=== PATIENT | female | born 1980 | race American Indian/Alaskan Native ===

== ENCOUNTER 2018-08-10 11:14 | Emergency (ER) | payer MEDICARE ==
--- NOTE | 2018-08-10 11:50 | Emergency Department Report ---
ED General Adult HPI - General Chief complaint: Dizziness Stated complaint: N/V Time Seen by Provider: 08/10/18 11:39 Source: patient Mode of arrival: Ambulatory Limitations: No Limitations - History of Present Illness Initial comments: A 7-year-old female who reportedly took a double dose of her Aptiom ( eslicarbazepine) by accident. Apparently she felt weak at work and vomited. On my encounter the patient is poorly describing the course of events. She is somewhat mumbling and speaking a low voice. She does not appear to be altered but she is acting somewhat lethargic. She was oriented x 3 as per triage. She is speaking in a very low voice and difficult to obtain historical information from at this point. -: unknown - Related Data Home Medications Medication Instructions Recorded Confirmed Last Taken Escitalopram [Lexapro] 10 mg PO DAILY 08/10/18 08/10/18 Unknown Eslicarbazepine Acetate [Aptiom] 1,200 mg PO DAILY 08/10/18 08/10/18 Unknown Gabapentin [Neurontin] 300 mg PO TID 08/10/18 08/10/18 Unknown diazePAM [Diazepam] 5 mg PO Q8H 08/10/18 08/10/18 Unknown lamoTRIgine [LaMICtal] 50 mg PO DAILY 08/10/18 08/10/18 Unknown Allergies Allergy/AdvReac Type Severity Reaction Status Date / Time No Known Allergies Allergy Unverified 08/10/18 11:16 ED Review of Systems ROS: Stated complaint: N/V Other details as noted in HPI Comment: Unobtainable due to pts medical conditions ED Past Medical Hx - Past Medical History Previous Medical History?: Yes Hx Seizures: Yes - Surgical History Past Surgical History?: No - Social History Smoking Status: Never Smoker - Medications Home Medications: Home Medications Medication Instructions Recorded Confirmed Last Taken Type Escitalopram [Lexapro] 10 mg PO DAILY 08/10/18 08/10/18 Unknown History Eslicarbazepine Acetate [Aptiom] 1,200 mg PO DAILY 08/10/18 08/10/18 Unknown History Gabapentin [Neurontin] 300 mg PO TID 08/10/18 08/10/18 Unknown History diazePAM [Diazepam] 5 mg PO Q8H 08/10/18 08/10/18 Unknown History lamoTRIgine [LaMICtal] 50 mg PO DAILY 08/10/18 08/10/18 Unknown History ED Physical Exam - General Limitations: Other (poor cooperation versus altered mental status) General appearance: in no apparent distress, lethargic - Head Head exam: Present: atraumatic, normocephalic - Eye Eye exam: Present: normal appearance, PERRL, EOMI. Absent: scleral icterus - ENT ENT exam: Present: mucous membranes moist - Neck Neck exam: Present: normal inspection. Absent: tenderness, meningismus - Respiratory Respiratory exam: Present: normal lung sounds bilaterally. Absent: respiratory distress - Cardiovascular Cardiovascular Exam: Present: regular rate, normal rhythm. Absent: systolic murmur, diastolic murmur, rubs, gallop - GI/Abdominal GI/Abdominal exam: Present: soft, normal bowel sounds. Absent: distended, tenderness, guarding, rebound, rigid - Extremities Exam Extremities exam: Present: normal inspection, full ROM - Back Exam Back exam: Present: normal inspection - Neurological Exam Neurological exam: Present: oriented X3 (per nursing), CN II-XII intact (as testable). Absent: motor sensory deficit - Psychiatric Psychiatric exam: Present: normal mood, flat affect - Skin Skin exam: Present: warm, dry, intact, normal color. Absent: rash ED Course Vital Signs 08/10/18 08/10/18 08/10/18 11:28 11:30 11:34 Temperature 97.7 F Pulse Rate 78 77 Respiratory 13 13 Rate Blood Pressure 132/86 - Reevaluation(s) Reevaluation #1: Patient remained neurologically and hemodynamically stable. Her laboratory data base was unremarkable except for mild hypokalemia/mag. She is appropriate for outpatient disposition. She is informed to follow up with her neurologist/ primary care physicians. 08/10/18 15:41 ED Medical Decision Making - Lab Data Result diagrams: 08/10/18 11:58 08/10/18 11:58 Laboratory Results - last 24 hr 08/10/18 08/10/18 08/10/18 11:58 11:58 12:03 WBC 7.9 RBC 4.30 Hgb 12.6 Hct 37.8 MCV 88 MCH 29 MCHC 33 RDW 12.0 L Plt Count 225 Lymph % (Auto) 13.9 [place] % (Auto) 4.8 Eos % (Auto) 1.8 Baso % (Auto) 0.6 Lymph # 1.1 L [place] # 0.4 Eos # 0.1 Baso # 0.0 Seg Neutrophils % 78.9 H Seg Neutrophils # 6.3 Sodium 137 Potassium 3.1 L Chloride 99.3 Carbon Dioxide 26 Anion Gap 15 BUN 11 Creatinine 0.6 L Estimated GFR > 60 BUN/Creatinine Ratio 18 Glucose 159 H Calcium 8.6 Magnesium 1.60 L Total Bilirubin < 0.20 Direct Bilirubin < 0.2 Indirect Bilirubin 0.0 AST 11 ALT 8 Alkaline Phosphatase 37 Total Creatine Kinase 89 CK-MB (CK-2) < 1.0 CK-MB (CK-2) Rel Index 1.1 Total Protein 6.7 Albumin 4.4 Albumin/Globulin Ratio 1.9 Urine Color Urine Turbidity Urine pH Ur Specific [place] Urine Protein Urine Glucose (UA) Urine Ketones Urine Blood Urine Nitrite Urine Bilirubin Urine Urobilinogen Ur Leukocyte Esterase Urine WBC (Auto) Urine RBC (Auto) Urine Mucus Urine HCG, Qual Urine Opiates Screen Urine Methadone Screen Acetaminophen Ur Barbiturates Screen Ur Phencyclidine Scrn Ur Amphetamines Screen U Benzodiazepines Scrn Urine Cocaine Screen U Marijuana (THC) Screen Drugs of Abuse Note Plasma/Serum Alcohol 08/10/18 08/10/18 08/10/18 12:03 12:03 14:08 WBC RBC Hgb Hct MCV MCH MCHC RDW Plt Count Lymph % (Auto) [place] % (Auto) Eos % (Auto) Baso % (Auto) Lymph # [place] # Eos # Baso # Seg Neutrophils % Seg Neutrophils # Sodium Potassium Chloride Carbon Dioxide Anion Gap BUN Creatinine Estimated GFR BUN/Creatinine Ratio Glucose Calcium Magnesium Total Bilirubin Direct Bilirubin Indirect Bilirubin AST ALT Alkaline Phosphatase Total Creatine Kinase CK-MB (CK-2) CK-MB (CK-2) Rel Index Total Protein Albumin Albumin/Globulin Ratio Urine Color Yellow Urine Turbidity Clear Urine pH 6.0 Ur Specific [place] 1.016 Urine Protein 30 mg/dl Urine Glucose (UA) 50 Urine Ketones Neg Urine Blood Neg Urine Nitrite Neg Urine Bilirubin Neg Urine Urobilinogen < 2.0 Ur Leukocyte Esterase Neg Urine WBC (Auto) 5.0 Urine RBC (Auto) 2.0 Urine Mucus 1+ Urine HCG, Qual Negative Urine Opiates Screen Urine Methadone Screen Acetaminophen < 5.0 L Ur Barbiturates Screen Ur Phencyclidine Scrn Ur Amphetamines Screen U Benzodiazepines Scrn Urine Cocaine Screen U Marijuana (THC) Screen Drugs of Abuse Note Plasma/Serum Alcohol < 0.01 08/10/18 14:18 WBC RBC Hgb Hct MCV MCH MCHC RDW Plt Count Lymph % (Auto) [place] % (Auto) Eos % (Auto) Baso % (Auto) Lymph # [place] # Eos # Baso # Seg Neutrophils % Seg Neutrophils # Sodium Potassium Chloride Carbon Dioxide Anion Gap BUN Creatinine Estimated GFR BUN/Creatinine Ratio Glucose Calcium Magnesium Total Bilirubin Direct Bilirubin Indirect Bilirubin AST ALT Alkaline Phosphatase Total Creatine Kinase CK-MB (CK-2) CK-MB (CK-2) Rel Index Total Protein Albumin Albumin/Globulin Ratio Urine Color Urine Turbidity Urine pH Ur Specific [place] Urine Protein Urine Glucose (UA) Urine Ketones Urine Blood Urine Nitrite Urine Bilirubin Urine Urobilinogen Ur Leukocyte Esterase Urine WBC (Auto) Urine RBC (Auto) Urine Mucus Urine HCG, Qual Urine Opiates Screen Presumptive negative Urine Methadone Screen Presumptive negative Acetaminophen Ur Barbiturates Screen Presumptive negative Ur Phencyclidine Scrn Presumptive negative Ur Amphetamines Screen Presumptive negative U Benzodiazepines Scrn Presumptive positive Urine Cocaine Screen Presumptive negative U Marijuana (THC) Screen Presumptive negative Drugs of Abuse Note Disclamer Plasma/Serum Alcohol - EKG Data -: EKG Interpreted by [place] EKG shows normal: sinus rhythm, axis, intervals, QRS complexes, ST-T waves Rate: normal - EKG Data Interpretation: other (consider biatrial abnormality, somewhat increased voltage inferior leads) Critical care attestation.: If time is entered above; I have spent that time in minutes in the direct care of this critically ill patient, excluding procedure time. ED Disposition Clinical Impression: Hypokalemia, Hypomagnesemia Adverse effects of medication Qualifiers: Encounter type: initial encounter Qualified Code(s): T50.905A - Adverse effect of unspecified drugs, medicaments and biological substances, initial encounter Disposition: DC-01 TO HOME OR SELFCARE Is pt being admited?: No Does the pt Need Aspirin: No Condition: Stable Instructions: Hypokalemia (ED), Hypomagnesemia (ED) Additional Instructions: Follow-up with your usual neurologist/primary care physician. Your potassium and magnesium were a little low. This would be improved by higher potassium and magnesium and neurologic diet. Follow-up on this with your primary care physician. Rest return any acute change or problem. Referrals: PRIMARY CARE, [Primary Care Provider] - 2-3 Days Time of Disposition: 15:45
[2018-08-10] MEDS ORDERED: NACL 0.9% 1000 ML 1,000 ML IV ONE (11:57)
[2018-08-10 12:24] LABS: Basophils % (Auto) 0.6 % (0.0-1.8); Eosinophils # (Auto) 0.1 K/mm3 (0.0-0.4); Eosinophils % (Auto) 1.8 % (0.0-4.3); Hematocrit 37.8 % (30.3-42.9); Hemoglobin 12.6 gm/dl (10.1-14.3); Lymphocytes # (Auto) 1.1 K/mm3 (1.2-5.4); Lymphocytes % (Auto) 13.9 % (13.4-35.0); Mean Corpuscular HGB Conc 33 % (30-34); Mean Corpuscular Hemoglobin 29 pg (28-32); Mean Corpuscular Volume 88 fl (79-97); Monocytes # (Auto) 0.4 K/mm3 (0.0-0.8); Monocytes % (Auto) 4.8 % (0.0-7.3); Platelet Count 225 K/mm3 (140-440)
[2018-08-10 12:26] LABS: BUN/Creatinine Ratio 18; Blood Urea Nitrogen 11 mg/dL (7-17); Calcium 8.6 mg/dL (8.4-10.2); Hemolysis Index 8
[2018-08-10 12:28] LABS: Alanine Aminotransferase 8 units/L (7-56); Albumin 4.4 g/dL (3.9-5)
[2018-08-10 12:45] LABS: Bilirubin,Direct < 0.2 mg/dL (0-0.2); Creatine Kinase MB < 1.0 ng/mL (0.0-4.0)
[2018-08-10] MEDS ORDERED: K-DUR PO ONE (12:58)
[2018-08-10 14:41] LABS: Bilirubin,Urine NEG (Negative); Blood,Urine NEG (Negative); Color,Urine Yellow (Yellow); Mucus,Urine 1+ /HPF; Urobilinogen,Urine < 2.0 mg/dL (<2.0)
[2018-08-10 14:42] LABS: HCG Qualitative,Urine Negative (Negative)
[2018-08-10 14:59] LABS: Amphetamine Screen,Urine PRESUMPTIVE NEGATIVE; Cannabinoid Screen,Urine PRESUMPTIVE NEGATIVE; Cocaine Screen,Urine PRESUMPTIVE NEGATIVE; Methadone Screen,Urine PRESUMPTIVE NEGATIVE; Opiate Screen,Urine PRESUMPTIVE NEGATIVE
[2018-08-10 15:12] LABS: Benzodiazepines Screen,Urine PRESUMPTIVE POSITIVE
[2018-08-10] MEDS ORDERED: NAPROSYN PO ONE (15:40)
[2018-08-10 17:35] VITALS: BP 124/82
[2018-08-11] MEDS ORDERED: MAG-OX PO ONE (13:20)
== END 2018-08-10 16:00 | disposition home or self-care (01) ==
LOC: ED 11:14
DX: E83.42 Hypomagnesemia (principal); E87.6 Hypokalemia; T42.1X1A Poisoning by iminostilbenes, accidental (unintentional), initial encounter; Y92.89 Other specified places as the place of occurrence of the external cause
CPT/HCPCS: 36415; 80048; 80074; 80307; 81001; 81025; 82550; 82553; 83735; 85025; 93005; 93010; 96360; 99283; G0480; J7030; 80320